=== PATIENT | male | born 1975 | race American Indian/Alaskan Native ===

== ENCOUNTER 2016-10-13 19:40 | Emergency (ER) | payer SELFPAY ==
[2016-10-13 20:19] VITALS: BP 167/115
== END 2016-10-14 02:30 | disposition left against medical advice (07) ==
LOC: ED 19:40
DX: R55 Syncope and collapse (principal); I10 Essential (primary) hypertension; Z53.21 Procedure and treatment not carried out due to patient leaving prior to being seen by health care provider